=== PATIENT | female | born 1985 | race African-American/Black ===

== ENCOUNTER 2016-12-23 02:13 | Inpatient (IN) | payer OTHER ==
[2016-12-23] MEDS ORDERED: Sodium Citrate/Citric Acid* 15 ML UDC ONE (02:56)
[2016-12-23] MEDS ORDERED: ceFOXitin 2 GM IVPREMIX* 2 GM/50 ML BAG ONE ×2 (02:57→03:18)
[2016-12-23] MEDS ORDERED: Morphine PF AMP (0.5MG/ML)* 5 MG/10 ML AMP ONE (03:22)
[2016-12-23 03:46] LABS: Comments Flag Yes; Hematocrit 35 % (35-47); Hemoglobin 11.2 g/dl (12.0-16.0); Mean Corpuscular HGB Conc 32 g/dl (31-36); Mean Corpuscular Hemoglobin 24 pg (27-31); Mean Corpuscular Volume 74 fL (80-97); Mean Platelet Volume 10 um3 (7.4-10.4); Red Blood Count 4.77 10^6/ul (4.0-5.4); Red Cell Distribution Width 15 % (10.5-15); White Blood Count 9.1 10^3/ul (3.5-10.8)
[2016-12-23 03:53] LABS: BUN/Creatinine Ratio 14.1 (8-20); Calcium 8.9 mg/dL (8.6-10.3); EGFR African American 121.9 (>60); EGFR Non-African American 94.8 (>60); Potassium 3.9 mmol/L (3.5-5.0)
[2016-12-23 04:08] LABS: TSH (Thyroid Stimulating Horm) 3.67 mcIU/mL (0.34-5.60)
[2016-12-23] MEDS ORDERED: Ondansetron INJ* 2 MG/ML VIAL ONE (04:13)
[2016-12-23] MEDS ORDERED: OXYTOCIN* 10 UNITS/ML 1 ML VIAL ONE (04:13)
[2016-12-23 04:15] LABS: Free T4 0.72 ng/dL (0.61-1.12)
[2016-12-23] MEDS ORDERED: fentaNYL* 50 MCG/ML 2 ML VIAL (100 MCG VIAL) IV PRN (05:08)
[2016-12-23] MEDS ORDERED: DiMENhydriNATE IV* 50 MG/ML VIAL IV PUSH PRN ×2 (05:08→05:09)
[2016-12-23] MEDS ORDERED: Ketorolac INJ* 30 MG/ML 1 ML VIAL IV PRN ×2 (05:08→05:09)
[2016-12-23] MEDS ORDERED: Naloxone* 0.4 MG/ML 1 ML VIAL IV PRN (05:09)
[2016-12-23] MEDS ORDERED: Nalbuphine* 20 MG/ML 1 ML VIAL IV PRN (05:09)
[2016-12-23] MEDS ORDERED: oxyCODONE/Acetamin 5/325 MG* TAB PO PRN ×3 (05:09→20:00)
[2016-12-23] MEDS ORDERED: Scopolamine 1.5 mg* PATCH TRANSDERM PRN (05:09)
[2016-12-23] MEDS ORDERED: Naloxone* 2 MG in NS 0.9% 250 ML* 250 ML IV PRN (05:09)
[2016-12-23] MEDS ORDERED: Ondansetron INJ* 2 MG/ML VIAL IV PRN (05:09)
[2016-12-23] MEDS ORDERED: Dibucaine 1% 28.35 GM TUBE PR PRN (05:18)
[2016-12-23] MEDS ORDERED: Witch Hazel PAD* JAR TOPICAL PRN (05:18)
[2016-12-23] MEDS ORDERED: Acetaminophen TAB* 325 MG PO PRN (05:18)
[2016-12-23] MEDS ORDERED: Glycerin ADULT SUPP PR PRN (05:18)
[2016-12-23] MEDS ORDERED: Oxytocin in LR* 20 UNITS/1,000 ML BAG IVPB SCH (06:00)
[2016-12-23] MEDS ORDERED: metFORMIN* 1,000 MG TAB PO SCH (09:00)
[2016-12-23] MEDS ORDERED: glyBURIDE TAB* 2.5 MG PO SCH (09:00)
[2016-12-23] MEDS: metFORMIN* 500 MG TAB PO SCH ×3 (09:31→20:35)
[2016-12-23] MEDS: Ibuprofen TAB* 600 MG PO SCH ×3 (11:27→18:13)
[2016-12-23] MEDS: Simethicone CHEW TAB* 80 MG PO SCH ×4 (11:28→20:36)
[2016-12-23] MEDS: Docusate CAP* 100 MG PO SCH ×3 (11:28→20:36)
[2016-12-23] MEDS: Prenatal Vitamin TAB PO SCH (11:29)
[2016-12-24] MEDS: Ibuprofen TAB* 600 MG PO SCH (03:48)
[2016-12-24] MEDS: metFORMIN* 500 MG TAB PO SCH ×3 (06:49→17:33)
[2016-12-24 07:16] LABS: Hematocrit 31 % (35-47); Hemoglobin 10.2 g/dl (12.0-16.0); Mean Corpuscular HGB Conc 33 g/dl (31-36); Mean Corpuscular Hemoglobin 24 pg (27-31); Mean Platelet Volume 9 um3 (7.4-10.4); Red Blood Count 4.17 10^6/ul (4.0-5.4); Red Cell Distribution Width 15 % (10.5-15); White Blood Count 10.3 10^3/ul (3.5-10.8)
[2016-12-24 07:25] LABS: Comments Flag Yes
[2016-12-24 07:26] LABS: Mean Corpuscular Volume 74 fL (80-97)
[2016-12-24] MEDS: Docusate CAP* 100 MG PO SCH ×3 (08:23→20:21)
[2016-12-24] MEDS: Simethicone CHEW TAB* 80 MG PO SCH ×3 (08:23→20:21)
[2016-12-24] MEDS: Prenatal Vitamin TAB PO SCH (08:23)
--- NOTE | 2016-12-24 08:41 | OP ---
DATE OF OPERATION: 12/23/16 - ROOM #MCHOB-105 DATE OF : 81 SURGEON: Dr. Aguilera LEAD [employer]LECT[employer]OLS ENGINEER: Ghazal Dean CNM. ANESTHESIOLOGIST: Dr. Castellon ANESTHESIA: Spinal. PRE-OP DIAGNOSIS: Intrauterine at 37 and 1/7th weeks. Spontaneous rupture of membranes, actively declines vaginal after section, desires repeat . POST-OP DIAGNOSES: Intrauterine at 37 and 1/7th weeks. Spontaneous rupture of membranes, actively declines vaginal after section, desires repeat , delivered. OPERATIVE PROCEDURE: Repeat low transverse section. ESTIMATED BLOOD LOSS: 600 cc. FLUIDS: 2400 cc of crystalloid. URINE OUTPUT: 200 cc of clear yellow urine. FINDINGS: Revealed a vertex female infant with Apgars at 9 at 1 minute and 9 at 5 minutes,weight 7 pounds 10 ounces. No meconium. No nuchal cord. Normal appearing tubes and ovaries. Normal appearing placenta with 3-vessel cord manually intact. COMPLICATIONS: None apparent. DISPOSITION: Stable to recovery room. DESCRIPTION OF PROCEDURE: The patient was placed in dorsal lithotomy position. After undergoing spinal anesthesia, the abdomen was prepped and draped in a sterile standard fashion. The patient was then identified with universal protocol. Incision was tested for appropriate anesthesia and incision was made 2 fingerbreadths above the pubic symphysis. This was carried down through to the fascia. The fascia was scored in the midline and extended laterally and superiorly using curved Estrella scissors. The fascia was superiorly and inferiorly while using blunt and sharp dissection. The peritoneum was then entered bluntly. The peritoneal incision was extended superiorly and inferiorly with blunt and sharp dissection. Bladder blade was inserted. The lower uterine segment was identified. A moist laparotomy sponge was placed in the colic gutter on the left and Allis was used to tent up on the lower uterine segment. A bladder flap was created through blunt and sharp dissection. Incision was made into the lower uterine segment. This was carried down through to membranes. The incision was then extended laterally and superiorly using bandage scissors. The was found to be LOT. Head was delivered. No nuchal cord was appreciated. Anterior and posterior shoulders were delivered. Cord was milked and cord was then clamped and cut and the was handed off to awaiting ice scraper. Appropriate cord blood was obtained. Placenta was manually extracted. The uterus was exteriorized, wrapped in warm, moist laparotomy sponge. The uterine cavity was explored and it is noted to be free of any retained placental tissue or membranes. The incision, there was a midline vertical extension and this was reapproximated using 0 Vicryl in a running locked fashion and then the hysterotomy site was reapproximated using 0 Vicryl x2 first layer running locked, second layer running imbricated on the vertical extension. Midline extension was reapproximated and imbricated using 0 Vicryl. Tubes and ovaries were noted to have a normal appearance. Uterus was returned intraabdominally, colic gutters were lavaged. The moist laparotomy sponge was removed in the left colic gutter. 3-0 Vicryl was then used to reapproximate the peritoneum in a running fashion. The subfascial area was visualized and noted to be hemostatic. The fascia was then reapproximated using 0 Vicryl x2 in a running fashion. The subcu was lavaged. Hemostasis was assured with Bovie coagulation and a subcuticular fat stitch was placed using 0 Vicryl for occlusion of the space. Incision itself was then reapproximated using a 4-0 Monocryl in a subcuticular fashion. Mastisol and Steri's were applied. All sponge, needle, instrument and blade counts were correct throughout the case. The patient tolerated the procedure well and went to recovery room in stable condition. [id number]/[facility] #: [id number] DYLON
[2016-12-24] MEDS ORDERED: Ferrous Gluconate TAB* 324 MG TAB PO SCH (09:00)
[2016-12-24] MEDS: Ibuprofen TAB* 600 MG PO PRN ×3 (10:39→23:09)
[2016-12-25] MEDS: Ibuprofen TAB* 600 MG PO PRN (05:17)
[2016-12-25] MEDS: metFORMIN* 500 MG TAB PO SCH (08:00)
[2016-12-25] MEDS: Simethicone CHEW TAB* 80 MG PO SCH (08:01)
[2016-12-25 08:19] VITALS: BP 123/66
[2016-12-25] MEDS: Docusate CAP* 100 MG PO SCH (09:21)
[2016-12-25] MEDS: Prenatal Vitamin TAB PO SCH (09:21)
== END 2016-12-25 11:01 | disposition home or self-care (01) | DRG 540 ==
LOC: MCHOBOUT 02:13 → MCHOB 02:36
PROVIDERS: ADMIT Obstetrics & Gynecology; ATTEND Obstetrics & Gynecology
PROC: 10D00Z1 Extraction of Products of Conception, Low, Open Approach (ICD-10-PCS; principal; 2016-12-23 02:15)
DX: O42.02 Full-term premature rupture of membranes, onset of labor within 24 hours of rupture (principal); O24.12 Pre-existing type 2 diabetes mellitus, in childbirth; O34.211 Maternal care for low transverse scar from previous cesarean delivery; E11.9 Type 2 diabetes mellitus without complications; O99.824 Streptococcus B carrier state complicating childbirth; O99.334 Smoking (tobacco) complicating childbirth; F17.210 Nicotine dependence, cigarettes, uncomplicated; Z3A.37 37 weeks gestation of pregnancy; Z37.0 Single live birth; Z79.84 Long term (current) use of oral hypoglycemic drugs
CPT/HCPCS: 36415; 80048; 84439; 84443; 85025; 86850; 86900; 86901; A9270-GY; J0694; J1240; J2405; J2590

== ENCOUNTER 2017-01-12 14:14 | Emergency (ER) | payer OTHER ==
[2017-01-12 15:29] VITALS: BP 125/76
--- NOTE | 2017-01-12 15:33 | RAD ---
INDICATION: Vaginal bleeding status post 3 weeks ago. COMPARISON: There are no prior studies available for comparison. TECHNIQUE: Multiple real-time transabdominal images of the pelvis were obtained. FINDINGS: The uterus is mildly enlarged and normal in shape and echogenicity. The uterus measured 11.5 x 5.9 x 8.3 cm. The endometrial echo measured 1.3 cm in thickness. There is fluid in the endometrial canal. There is no evidence for retained products of conception. The right ovary measured 2.4 x 4.0 x 1.7 cm. The left ovary measured 5.2 x 2.6 x 5.1 cm. There is a small simple cyst within the left ovary measuring 2.4 x 2.8 x 2.2 cm most consistent with a follicular cyst. There is a small amount of free intraperitoneal fluid in the cul-de-sac. IMPRESSION: 1. MILDLY ENLARGED UTERUS CONSISTENT WITH THE PATIENT'S RECENT . NO EVIDENCE FOR RETAINED PRODUCTS OF CONCEPTION. IF THE PATIENT'S SYMPTOMS PERSIST, RECOMMEND FOLLOW-UP TRANSVAGINAL IMAGING. 2. 2.8 CM LEFT OVARIAN CYST MOST CONSISTENT WITH A FOLLICULAR CYST.
[2017-01-12 15:44] LABS: Hematocrit 39 % (35-47); Hemoglobin 12.1 g/dl (12.0-16.0); Mean Corpuscular HGB Conc 31 g/dl (31-36); Mean Corpuscular Hemoglobin 23 pg (27-31); Mean Corpuscular Volume 74 fL (80-97); Mean Platelet Volume 8 um3 (7.4-10.4); Red Blood Count 5.18 10^6/ul (4.0-5.4); Red Cell Distribution Width 15 % (10.5-15)
[2017-01-12 15:45] LABS: Add Diff/Slide Review? Slide Review Added; Comments Flag Yes
[2017-01-12 15:57] LABS: Albumin 3.7 g/dL (3.2-5.2); BUN/Creatinine Ratio 11.1 (8-20); Calcium 9.1 mg/dL (8.6-10.3); EGFR Non-African American 108.8 (>60); Globulin 3.2 g/dL (2-4); Potassium 4.1 mmol/L (3.5-5.0); Total Bilirubin 0.3 mg/dL (0.2-1.0); Total Protein 6.9 g/dL (6.4-8.9)
--- NOTE | 2017-01-14 10:28 | ED ---
Flor Staton Auryana, scribed for Jaime Levine MD on 01/12/17 at 1427 . GI/ HPI - HPI Summary HPI Summary: 31 year old female presents with vaginal bleeding 2 hours [employer]. Patient reports that the vaginal bleeding has now returned to normal - mild. Patient is unsure if the dark vaginal bleeding is normal s/p C-sections ( 3 weeks ago). She was referred to the ED for further evaluation - and denies any complaints now. She denies any fever, chills, or any abdominal pain. PMHx is significant for C- section (Dr. Venegas); . 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 Negative: Abdominal Pain Additional Signs & Symptoms: Positive: Vaginal Bleeding, Other: - - Allergy/Home Medications Allergies/Adverse Reactions: Allergies Allergy/AdvReac Type Severity Reaction Status Date / Time No Known Allergies Allergy Verified 11/24/15 18:07 PMH/Surg Hx/FS Hx/Imm Hx Endocrine/Hematology History: Reports: Hx Diabetes - Type 2 Denies: Hx Thyroid Disease Cardiovascular History: Denies: Hx Congestive Heart Failure, Hx Deep Vein Thrombosis, Hx Hypertension , Hx Myocardial Infarction, Hx Pacemaker/ICD Respiratory History: Denies: Hx Asthma, Hx Chronic Obstructive Pulmonary Disease (COPD), Hx Lung Cancer, Hx Pneumonia, Hx Pulmonary Embolism GI History: Denies: Hx Gall Bladder Disease, Hx Gastrointestinal Bleed, Hx Ulcer, Hx Urosepsis History: Denies: Hx Kidney Stones, Hx Renal Disease Neurological History: Denies: Hx Dementia, Hx Migraine, Hx Seizures, Hx Transient Ischemic Attacks (TIA) Psychiatric History: Denies: Hx Anxiety, Hx Depression, Hx Schizophrenia, Hx Bipolar Disorder - Surgical History Surgery Procedure, Year, and Place: . Gall Bladder Infectious Disease History: Denies: Traveled Outside the [place] in Last 30 Days - Family History Known Family History: Positive: Cardiac Disease, Hypertension, Diabetes - Social History Lives: With Family Alcohol Use: None Substance Use Type: Reports: None Smoking Status (MU): Current Every Day Smoker Type: Cigarettes Amount Used/How Often: 7 CIG/DAY Review of Systems Constitutional: Negative Negative: Fever, Chills Eyes: Negative ENT: Negative Cardiovascular: Negative Respiratory: Negative Gastrointestinal: Negative Negative: Abdominal Pain Positive: other - vaginal bleeding - now returned to normal Musculoskeletal: Negative Skin: Negative Neurological: Negative Psychological: Normal All Other Systems Reviewed And Are Negative: Yes Physical Exam - Summary Physical Exam Summary: VITAL SIGNS: Reviewed. GENERAL: Patient is a well-developed and nourished female who is lying comfortable in the stretcher. Patient is not in any acute respiratory distress. HEAD AND FACE: Normocephalic and atraumatic. EYES: PERRLA, EOMI x 2, No injected conjunctiva. EARS: Hearing grossly intact. Ear canals and tympanic membranes are WNL. MOUTH: Oropharynx within normal limits. NECK: Supple, trachea is midline, no adenopathy, no JVD. CHEST: Symmetric, no tenderness at palpation LUNGS: Clear to auscultation bilaterally. No wheezing or crackles. CVS: RRR, S1 and S2 present, no murmurs or gallops appreciated. ABDOMEN: Soft, non-tender. No signs of distention. Positive bowel sounds. No rebound no guarding, and no masses palpated. No abdominal bruit or pulsations. EXTREMITIES: FROM in all major joints, no edema, no cyanosis or clubbing. NEURO: Alert and oriented x 3. No acute neurological deficits. Speech is normal. SKIN: Dry and warm. incision is clean, dry and intact with no surrounding erythema. Triage Information Reviewed: Yes Vital Signs On Initial Exam: Initial Vitals Temp Pulse Resp BP Pulse Ox 97.6 F 85 17 126/82 100 01/12/17 14:18 01/12/17 14:18 01/12/17 14:18 01/12/17 14:18 01/12/17 14:18 Vital Signs Reviewed: Yes Diagnostics - Vital Signs Vital Signs Temp Pulse Resp BP Pulse Ox 01/12/17 14:18 97.6 F 85 17 126/82 100 - Laboratory Lab Results: Lab Results 01/12/17 01/12/17 01/12/17 Range/Units 15:35 15:35 15:35 WBC 8.0 (3.5-10.8) 10^3/ul RBC 5.18 (4.0-5.4) 10^6/ul Hgb 12.1 (12.0-16.0) g/dl Hct 39 (35-47) % MCV 74 L (80-97) fL MCH 23 L (27-31) pg MCHC 31 (31-36) g/dl RDW 15 (10.5-15) % Plt Count 294 (150-450) 10^3/ul MPV 8 (7.4-10.4) um3 Neut % (Auto) 59.2 (38-83) % Lymph % (Auto) 29.9 (25-47) % Fisher % (Auto) 6.4 (1-9) % Eos % (Auto) 3.2 (0-6) % Baso % (Auto) 1.3 (0-2) % Absolute Neuts (auto) 4.7 (1.5-7.7) 10^3/ul Absolute Lymphs (auto) 2.4 (1.0-4.8) 10^3/ul Absolute Monos (auto) 0.5 (0-0.8) 10^3/ul Absolute Eos (auto) 0.3 (0-0.6) 10^3/ul Absolute Basos (auto) 0.1 (0-0.2) 10^3/ul Absolute Nucleated RBC 0.02 10^3/ul Nucleated RBC % 0.2 Hem Pathologist Commnt Pending Sodium 136 (133-145) mmol/L Potassium 4.1 (3.5-5.0) mmol/L Chloride 108 (101-111) mmol/L Carbon Dioxide 22 (22-32) mmol/L Anion Gap 6 (2-11) mmol/L BUN 7 (6-24) mg/dL Creatinine 0.63 (0.51-0.95) mg/dL Est GFR ( Amer) 140.0 (>60) Est GFR (Non-Af Amer) 108.8 (>60) BUN/Creatinine Ratio 11.1 (8-20) Glucose 93 (70-100) mg/dL Lactic Acid 1.4 (0.5-2.0) mmol/L Calcium 9.1 (8.6-10.3) mg/dL Total Bilirubin 0.30 (0.2-1.0) mg/dL AST 23 (13-39) U/L ALT 29 (7-52) U/L Alkaline Phosphatase 69 (34-104) U/L Total Protein 6.9 (6.4-8.9) g/dL Albumin 3.7 (3.2-5.2) g/dL Globulin 3.2 (2-4) g/dL Albumin/Globulin Ratio 1.2 (1-3) Blood Type Antibody Screen 01/12/17 Range/Units 15:35 WBC (3.5-10.8) 10^3/ul RBC (4.0-5.4) 10^6/ul Hgb (12.0-16.0) g/dl Hct (35-47) % MCV (80-97) fL MCH (27-31) pg MCHC (31-36) g/dl RDW (10.5-15) % Plt Count (150-450) 10^3/ul MPV (7.4-10.4) um3 Neut % (Auto) (38-83) % Lymph % (Auto) (25-47) % Fisher % (Auto) (1-9) % Eos % (Auto) (0-6) % Baso % (Auto) (0-2) % Absolute Neuts (auto) (1.5-7.7) 10^3/ul Absolute Lymphs (auto) (1.0-4.8) 10^3/ul Absolute Monos (auto) (0-0.8) 10^3/ul Absolute Eos (auto) (0-0.6) 10^3/ul Absolute Basos (auto) (0-0.2) 10^3/ul Absolute Nucleated RBC 10^3/ul Nucleated RBC % Hem Pathologist Commnt Sodium (133-145) mmol/L Potassium (3.5-5.0) mmol/L Chloride (101-111) mmol/L Carbon Dioxide (22-32) mmol/L Anion Gap (2-11) mmol/L BUN (6-24) mg/dL Creatinine (0.51-0.95) mg/dL Est GFR ( Amer) (>60) Est GFR (Non-Af Amer) (>60) BUN/Creatinine Ratio (8-20) Glucose (70-100) mg/dL Lactic Acid (0.5-2.0) mmol/L Calcium (8.6-10.3) mg/dL Total Bilirubin (0.2-1.0) mg/dL AST (13-39) U/L ALT (7-52) U/L Alkaline Phosphatase (34-104) U/L Total Protein (6.4-8.9) g/dL Albumin (3.2-5.2) g/dL Globulin (2-4) g/dL Albumin/Globulin Ratio (1-3) Blood Type B Positive Antibody Screen Negative Result Diagrams: 01/12/17 15:35 01/12/17 15:35 Lab Statement: Any lab studies that have been ordered have been reviewed, and results considered in the medical decision making process. - Additional Comments Diagnostic Additional Comments: US PELVIC- IMPRESSION: 1. MILDLY ENLARGED UTERUS CONSISTENT WITH THE PATIENT'S RECENT . NO EVIDENCE FOR RETAINED PRODUCTS OF CONCEPTION. IF THE PATIENT'S SYMPTOMS PERSIST, RECOMMEND FOLLOW-UP TRANSVAGINAL IMAGING. 2. 2.8 CM LEFT OVARIAN CYST MOST CONSISTENT WITH A FOLLICULAR CYST. GIGU Course/Dx - Course Assessment/Plan: 31 year old female presents with vaginal bleeding 2 hours [employer]. Patient reports that the vaginal bleeding has now returned to normal - mild. Patient is unsure if the dark vaginal bleeding is normal s/p C-sections ( 3 weeks ago). She was referred to the ED for further evaluation - and denies any complaints now. She denies any fever, chills, or any abdominal pain. PMHx is significant for (Dr. Venegas); . Test results WNL. Pelvic US shows a MILDLY ENLARGED UTERUS CONSISTENT WITH THE PATIENT'S RECENT . NO EVIDENCE FOR RETAINED PRODUCTS OF CONCEPTION. IF THE PATIENT'S SYMPTOMS PERSIST, RECOMMEND FOLLOW-UP TRANSVAGINAL IMAGING. ; 2.8 CM LEFT OVARIAN CYST MOST CONSISTENT WITH A FOLLICULAR CYST. Patient declined pelvic exam. I discussed the case with Dr. Venegas who recommends discharge home and follow up with him. Patient is asymptomatic and I discussed the findings and follow up with the patient. She understands and agrees. Patient is hemodynamically stable and A&Ox3. - Diagnoses Differential Diagnoses - Female: Other - Vaginal bleed, RPOC Provider Diagnoses: Vaginal bleeding - Physician Notifications Discussed Care Of Patient With: Virgil Venegas Time Discussed With Above Provider: 15:36 Discharge - Discharge Plan Condition: Stable Disposition: HOME Patient Education Materials: Bleeding (ED) Referrals: John GARCIA,Mendy White [Primary Care Provider] - 2 Days The documentation as recorded by the Flor balderas Auryana accurately reflects the service I personally performed and the decisions made by , Jaime Levine MD.
== END 2017-01-12 16:09 | disposition home or self-care (01) ==
LOC: ED 14:14
DX: N93.9 Abnormal uterine and vaginal bleeding, unspecified (principal); F17.210 Nicotine dependence, cigarettes, uncomplicated; N83.202 Unspecified ovarian cyst, left side
CPT/HCPCS: 36415; 76856; 80053; 83605; 85025; 85060; 86850; 86900; 86901; 99282